=== PATIENT | female | born 1945 | race Caucasian/White ===

== ENCOUNTER → 2018-01-07 | Day surgery (SDC) | payer MEDICARE ==
--- NOTE | 2018-01-05 13:36 | Diagnostic Imaging Report ---
EXAM: XR CHEST 2 VIEWS DATE: 01/05/2018 12:56 PM INDICATION: Preoperative, pain, wrist surgery COMPARISON: None FINDINGS: Lines and Tubes: None Heart and Mediastinum: Heart accentuated by lung volumes. Aortic vascular calcifications present. Lungs and Pleura: No significant pleural effusion, pneumothorax, or focal consolidation. Minimal opacities in the lung bases statistically represent atelectasis, however, infectious process could have a similar appearance. Bones and Soft Tissues: No acute findings. IMPRESSION: 1. No acute cardiopulmonary findings. Signed by: Dr. Miguelangel Caldera MD on 01/05/2018 1:33 PM
[2018-01-05 13:51] LABS: BASOPHILS # (AUTO) 0.1 (0.0-0.1); BASOPHILS % 0.8 % (0.0-1.0); EOSINOPHILS # (AUTO) 0.3 (0.0-0.4); EOSINOPHILS % 3.7 % (0.0-6.0); HEMOGLOBIN 12.2 g/dL (12.0-16.0); LYMPHOCYTES # (AUTO) 2.8 (1.0-3.2); LYMPHOCYTES % 30.6 % (18.0-39.1); MEAN CORPUSCULAR HEMOGLOBIN 30.7 pg (28-32); MONOCYTES # (AUTO) 0.6 (0.2-0.8); MONOCYTES % 6.4 % (4.4-11.3); NEUTROPHILS # (AUTO) 5.3 (2.1-6.9); NEUTROPHILS % 57.5 % (38.7-80.0); PLATELET COUNT 257 x10e3/uL (140-360); RED BLOOD COUNT 3.98 x10e6/uL (3.6-5.1); RED CELL DISTRIBUTION WIDTH 13.2 % (11.7-14.4)
[2018-01-05 14:13] LABS: ANION GAP 17.1 mmol/L (8-16); CALCIUM 9.3 mg/dL (8.4-10.2); CREATININE, SERUM 0.92 mg/dL (0.57-1.11); POTASSIUM 4.1 mmol/L (3.5-5.1)
[~2018-01-07] MED LIST: COQ-10100 MG PO; DEXAMETHASONE SOD PHOS INJ 4 MG/ML VIAL ONE; EPHEDRINE SULFATE INJ 50 MG/10 ML SYR ONE; FAMOTIDINE 20 MG/2 ML VIAL IV ONE; FENOFIBRATE145 MG PO; FENTANYL CITRATE/PF 100MCG/2 ML INJ ONE; FOLIC ACID1 MG PO; GLIMEPIRIDE4 MG PO; HUMALOG MI100 UNIT/5 SC; LIDOCAINE HCL 2% LOCAL INJ 5 ML SDV VIAL INJ ONE; LISINOPRIL-HCT1 EAC2 PO; LOVASTATIN40 MG PO; MAGNESIUM OXID400 MG PO; METFORMIN HCL850 MG PO; METOCLOPRAMIDE HCL 10 MG/2ML VIAL ONE; MIDAZOLAM HCL 2 MG/2 ML VIAL ONE; NABUMETONE750 MG PO; ONDANSETRON HCL INJ 2 MG/ML VIAL ONE; PROPOFOL IV EMULSION 10 MG/ML 20 ML VIAL ONE; SCOPOLAMINE 1.5 MG PATCH ONE; SEVOFLURANE INHAL SOLN 250 ML PEN BTL ONE; TOUJEO SC; VITAMIN B-6250 MG PO; VITAMIN C1000 MG PO; VITAMIN D35000 UNIT PO; ZEBETA10 MG PO
--- OUTSIDE RECORDS SUMMARY | 2018-01-07 05:20 | XMS REPORT ---
Author Author [facility] Address Unknown Phone Unavailable Care Team Providers Care Geographic Information Systems Manager Name Role Phone ADY WILEY Unavailable Unavailable Problems This patient has no known problems. Allergies, Adverse Reactions, Alerts This patient has no known allergies or adverse reactions. Medications This patient has no known medications. Results Test Description Test Time Test Comments Text Results Atomic Results Result Comments CHEST 2 VIEWS 2018-01-05 13:32:00 [place] [id number] Patient Name: LALI BLAKE MR #: [id number] : 1945 Age/Sex: 72/F Req #: [id number] Adm Physician: Ordered by: ADY WILEY MD Report #: [id number] Location: OR Room/Bed: Procedure: [id number] DX/CHEST 2 VIEWS Exam Date: Exam Time: REPORT STATUS: Signed EXAM: XR CHEST 2 VIEWS DATE: 01/05/2018 12:56 PM INDICATION: Preoperative, pain, wrist surgery COMPARISON: None FINDINGS: Lines and Tubes: None Heart and Mediastinum: Heart accentuated by lung volumes. Aortic vascular calcifications present. Lungs and Pleura: No significant pleural effusion, pneumothorax, or focal consolidation. Minimal opacities in the lung bases statistically represent atelectasis, however, infectious process could have a similar appearance. Bones and Soft Tissues: No acute findings. IMPRESSION: 1. No acute cardiopulmonary findings. Signed by: Dr. Miguelangel Piedra MD on 01/05/2018 1:33 PM Dictated By: MIGUELANGEL PIEDRA MD [id number] Transcribed By: SHAYY on 01/05/181332 COPY TO: ADY WILEY MD
[2018-01-07 09:35] VITALS: BP 137/88
--- NOTE | 2018-01-07 13:19 | Operative Report ---
DATE OF PROCEDURE: January 07, 2018 PREOPERATIVE DIAGNOSIS: Recurrent right carpal tunnel syndrome. POSTOPERATIVE DIAGNOSIS: Recurrent right carpal tunnel syndrome. PROCEDURES PERFORMED: Patient underwent an 1. Exploration of the right median nerve. 2. Release of the right carpal tunnel. CCTV TECHNICIAN: Sade Hunter. ANESTHESIA: General endotracheal intubation anesthesia. INTRAVENOUS FLUIDS: As per the anesthesia record. DESCRIPTION OF PROCEDURE: Ms. Etienne was taken to the operating room and placed in the supine position on the operating room table. Following induction of general anesthesia as well as endotracheal intubation, the patient's right upper extremity was examined under anesthesia. She was found to have a small incision at the distal forearm wrist crease consistent with a previous carpal tunnel release. There were no gross abnormalities about the wrist or hand. The patient's upper extremity was prepped and draped in standard surgical fashion. The case was begun by creating an incision in the distal forearm, extending across the distal forearm/wrist crease and into the palm of the hand overlying the carpal canal. This incision was carried through the skin only. Proximally the incision was deepened, and the median nerve was identified. Combinations of both blunt and sharp dissection were then carried distally into the palm of the hand, exposing the median nerve in its entirety. There was scar tissue overlying the median nerve. This was released fully at the time of surgery. The wound was then copiously irrigated. The tourniquet was deflated, and hemostasis was obtained prior to closing the wound. The wound was closed in a multilayer fashion. Sterile dressings were applied, and the patient was then awakened and taken to the postanesthesia care unit in stable condition. Job#: [id number]
== END | disposition home or self-care (01) ==
LOC: OR 05:05
PROVIDERS: ATTEND Specialist
DX: G56.01 Carpal tunnel syndrome, right upper limb (principal); E11.9 Type 2 diabetes mellitus without complications; I10 Essential (primary) hypertension; M19.041 Primary osteoarthritis, right hand; M19.042 Primary osteoarthritis, left hand; G56.22 Lesion of ulnar nerve, left upper limb; M18.0 Bilateral primary osteoarthritis of first carpometacarpal joints; Z88.6 Allergy status to analgesic agent; Z88.1 Allergy status to other antibiotic agents; Z88.5 Allergy status to narcotic agent; Z88.8 Allergy status to other drugs, medicaments and biological substances; Z01.810 Encounter for preprocedural cardiovascular examination; Z01.812 Encounter for preprocedural laboratory examination; Z01.811 Encounter for preprocedural respiratory examination
CPT/HCPCS: 36415 ×2; 64721; 71046; 80048; 82948; 85025; 93005; J1100; J2001; J2250; J2405; J2704; J2765

== ENCOUNTER 2021-01-10 16:52 | Outpatient (RCR) ==
[~2021-01-10 16:52] MED LIST changes: -DEXAMETHASONE SOD PHOS INJ 4 MG/ML VIAL ONE; -EPHEDRINE SULFATE INJ 50 MG/10 ML SYR ONE; -FAMOTIDINE 20 MG/2 ML VIAL IV ONE; -FENTANYL CITRATE/PF 100MCG/2 ML INJ ONE; -LIDOCAINE HCL 2% LOCAL INJ 5 ML SDV VIAL INJ ONE; -METOCLOPRAMIDE HCL 10 MG/2ML VIAL ONE; -MIDAZOLAM HCL 2 MG/2 ML VIAL ONE; -ONDANSETRON HCL INJ 2 MG/ML VIAL ONE; -PROPOFOL IV EMULSION 10 MG/ML 20 ML VIAL ONE; -SCOPOLAMINE 1.5 MG PATCH ONE; -SEVOFLURANE INHAL SOLN 250 ML PEN BTL ONE
[2021-01-10 17:36] LABS: BASOPHILS # (AUTO) 0.1 (0.0-0.1); EOSINOPHILS # (AUTO) 0.1 (0.0-0.4); EOSINOPHILS % 1.8 % (0.0-6.0); HEMATOCRIT 28.8 % (34.2-44.1); HEMOGLOBIN 9.9 g/dL (12.0-16.0); LYMPHOCYTES # (AUTO) 1.7 (1.0-3.2); LYMPHOCYTES % 27.9 % (18.0-39.1); MEAN CORPUSCULAR HEMOGLOBIN 32.5 pg (28-32); MEAN CORPUSCULAR HGB CONC 34.4 g/dL (31-35); MEAN CORPUSCULAR VOLUME 94.4 fL (81-99); MONOCYTES # (AUTO) 0.6 (0.2-0.8); MONOCYTES % 9.6 % (4.4-11.3); NEUTROPHILS # (AUTO) 3.6 (2.1-6.9); NEUTROPHILS % 58.7 % (38.7-80.0); PLATELET COUNT 320 x10e3/uL (140-360); RED BLOOD COUNT 3.05 x10e6/uL (3.6-5.1); RED CELL DISTRIBUTION WIDTH 15.9 % (11.7-14.4)
[2021-01-10 17:47] LABS: ALBUMIN 2.7 g/dL (3.5-5.0); ALBUMIN/GLOBULIN RATIO 0.8 (0.8-2.0); ANION GAP 16.8 mmol/L (8-16); CALCIUM 9.4 mg/dL (8.4-10.2); CREATININE, SERUM 0.96 mg/dL (0.57-1.11); POTASSIUM 4.8 mmol/L (3.5-5.1)
== END 2021-01-23 ==
LOC: NPA 16:52
PROVIDERS: ATTEND Pathology Anatomic Pathology & Clinical Pathology
DX: Z13.89 Encounter for screening for other disorder (principal)
CPT/HCPCS: 36415; 80053; 85025

== ENCOUNTER → 2022-01-21 | Outpatient (CLI) | payer MEDICARE ==
[~2022-01-21] MED LIST changes: +IOPAMIDOL 370 MG/ML 100 ML INFUS..BTL INJ ONE; +SODIUM CHLORIDE 0.9% 100 ML ONE
[2022-01-21 11:14] LABS: CREATININE, SERUM 0.95 mg/dL (0.57-1.11)
== END ==
LOC: CT 09:47
PROVIDERS: ATTEND Family Medicine
DX: I65.23 Occlusion and stenosis of bilateral carotid arteries (principal); I70.203 Unspecified atherosclerosis of native arteries of extremities, bilateral legs
CPT/HCPCS: 36415; 75635; 82565; 84520; J7050; Q9967